=== PATIENT | female | born 1980 | race Caucasian/White ===

== ENCOUNTER 2016-12-26 14:08 | Inpatient (IN) | payer MEDICAID ==
[~2016-12-26] VITALS: Ht 167.6 cm; Wt 55.3 kg
[2016-12-26 15:06] LABS: BASOPHILS # (AUTO) 0.06 K/uL (0.00-0.20); BASOPHILS % (AUTO) 0.6 % (0.0-2.0); EOSINOPHILS % (AUTO) 0.01 % (1.0-6.0); HEMATOCRIT 42.8 % (36-46); HEMOGLOBIN 14.1 g/dL (12.0-16.0); LYMPHOCYTES # (AUTO) 1.1 K/uL (1.0-4.8); MEAN CORPUSCULAR HEMOGLOBIN 30.3 pg (26.0-34.0); MEAN CORPUSCULAR VOLUME 92 fL (80-100); MONOCYTES # (AUTO) 0.4 K/uL (0.1-1.0); NEUTROPHILS # (AUTO) 7.5 K/uL (1.8-7.7); NEUTROPHILS % (AUTO) 83.3 % (40.0-70.0); PLATELET COUNT (AUTO) 455 K/uL (150-450); RED BLOOD CELL COUNT(AUTO) 4.66 MIL/uL (4.00-5.20); RED CELL DISTRIBUTION WIDTH 14.8 % (11.5-14.5)
[2016-12-26 15:12] LABS: ANION GAP 18 mmol/L (8-16); CALCIUM, TOTAL 8.4 mg/dL (8.8-10.5); CARBON DIOXIDE 20 mmol/L (22-29); CHLORIDE 105 mmol/L (98-107); GLOMERULAR FILTR. RATE CALC > 60 mL/min (>60); POTASSIUM 3.5 mmol/L (3.5-5.1); SODIUM SERUM 143 mmol/L (136-145); UREA NITROGEN, BLOOD 25 mg/dL (7-18)
[2016-12-26 15:17] LABS: ALANINE AMINOTRANSFERASE 36 U/L (12-78); ALBUMIN 3.8 g/dL (3.4-5.0); ASPARTATE AMINOTRANSFERASE 49 U/L (15-37); BILIRUBIN,TOTAL 0.5 mg/dL (0.1-1.0)
[2016-12-26] MEDS ORDERED: LORazepam 2 MG TABLET PO ONE (18:45)
[2016-12-26] MEDS ORDERED: HALOPERIDOL 5 MG TABLET PO ONE (18:45)
[2016-12-26] MEDS ORDERED: ACETAMINOPHEN 325 MG TABLET PO PRN (20:00)
[2016-12-26] MEDS ORDERED: 0.9% SODIUM CHLORIDE 10 ML SYRINGE IVP PRN (20:00)
[2016-12-26] MEDS ORDERED: LORazepam 2 MG TABLET PO PRN (20:15)
[2016-12-26] MEDS ORDERED: ZOLPIDEM TARTRATE 10 MG TABLET PO PRN (20:15)
[2016-12-26] MEDS ORDERED: CYANOCOBALAMIN 1,000 MCG/ML VIAL IM ONE (20:15)
[2016-12-26] MEDS ORDERED: LOPERAMIDE HCL 2 MG CAPSULE PO PRN (20:15)
[2016-12-26] MEDS ORDERED: GuaiFENesin/D-METHORPHAN [SUGAR-FREE] 200-20MG/10 ML SYRUP UDCUP PO PRN (20:15)
[2016-12-26] MEDS ORDERED: HALOPERIDOL 5 MG TABLET PO PRN (20:15)
[2016-12-26] MEDS ORDERED: HydrOXYzine PAMOATE 50 MG CAPSULE PO PRN (20:15)
[2016-12-27] VITALS (7 sets, daily range): BP systolic 100–119; BP diastolic 62–67
[2016-12-27] MEDS ORDERED: LORazepam 2 MG TABLET PO PRN (07:00)
[2016-12-27] MEDS: FOLIC ACID 1 MG TABLET PO SCH (09:18)
[2016-12-27] MEDS: THIAMINE HCL 100 MG TABLET PO SCH ×3 (09:19→16:06)
[2016-12-27] MEDS: LORazepam 2 MG TABLET PO SCH ×4 (09:19→20:32)
[2016-12-27] MEDS: MULTIVITAMINS WITH MINERALS, THERAPEUTIC TABLET PO SCH (09:19)
[2016-12-27 11:24] LABS: HEPATITIS Bs ANTIGEN SCREEN P Negative (Negative); HEPATITIS C AB SCREEN <0.1 s/co ratio (0.0-0.9)
[2016-12-27] MEDS ORDERED: PNEUMOCOCCAL VACCINE POLYVALENT 0.5 ML VIAL [PPSV23] IM ONE (17:30)
[2016-12-27] MEDS: OLANZapine 5 MG TABLET PO SCH (20:32)
[2016-12-28 05:53] VITALS: BP 107/62
[2016-12-28 05:56] VITALS: BP 107/62
[2016-12-28 06:16] VITALS: BP 107/62
[2016-12-28] MEDS: MULTIVITAMINS WITH MINERALS, THERAPEUTIC TABLET PO SCH (09:00)
[2016-12-28] MEDS: OLANZapine 5 MG TABLET PO SCH ×2 (09:00→20:22)
[2016-12-28] MEDS: LORazepam 2 MG TABLET PO SCH ×4 (09:00→20:22)
[2016-12-28] MEDS: THIAMINE HCL 100 MG TABLET PO SCH ×2 (09:00→16:15)
[2016-12-28] MEDS: FOLIC ACID 1 MG TABLET PO SCH (09:00)
[2016-12-28 16:00] VITALS: BP 120/72
[2016-12-29 06:16] VITALS: BP 110/70
[2016-12-29] MEDS ORDERED: LORazepam 1 MG TABLET PO PRN (07:00)
[2016-12-29 08:17] VITALS: BP 121/66
[2016-12-29] MEDS: LORazepam 1 MG TABLET PO SCH ×5 (09:00→20:16)
[2016-12-29] MEDS: THIAMINE HCL 100 MG TABLET PO SCH ×3 (09:00→16:54)
[2016-12-29] MEDS: FOLIC ACID 1 MG TABLET PO SCH ×2 (09:00→09:06)
[2016-12-29] MEDS: MULTIVITAMINS WITH MINERALS, THERAPEUTIC TABLET PO SCH ×2 (09:00→09:06)
[2016-12-29] MEDS: OLANZapine 5 MG TABLET PO SCH ×3 (09:00→20:16)
[2016-12-29 16:00] VITALS: BP 110/77
[2016-12-30] MEDS ORDERED: LORazepam 1 MG TABLET PO PRN (07:00)
[2016-12-30 07:11] VITALS: BP 100/65
[2016-12-30 08:00] VITALS: BP 118/79
[2016-12-30 08:23] VITALS: BP 118/79
[2016-12-30 09:05] LABS: BASOPHILS % (AUTO) 0.3 % (0.0-2.0); HEMATOCRIT 44.2 % (36-46); HEMOGLOBIN 14.1 g/dL (12.0-16.0); LYMPHOCYTES % (AUTO) 15.8 % (22.0-44.0); MEAN CORPUSCULAR HEMOGLOBIN 29.6 pg (26.0-34.0); MEAN CORPUSCULAR HGB CONC 31.8 G/dL (31.0-37.0); MEAN CORPUSCULAR VOLUME 93 fL (80-100); MONOCYTES # (AUTO) 0.5 K/uL (0.1-1.0); MONOCYTES % (AUTO) 8.2 % (2.0-9.0); NEUTROPHILS # (AUTO) 4.7 K/uL (1.8-7.7); NEUTROPHILS % (AUTO) 74.7 % (40.0-70.0); PLATELET COUNT (AUTO) 367 K/uL (150-450); RED BLOOD CELL COUNT(AUTO) 4.75 MIL/uL (4.00-5.20); RED CELL DISTRIBUTION WIDTH 14.6 % (11.5-14.5); WHITE BLOOD COUNT (AUTO) 6.3 K/uL (4.5-11.0)
[2016-12-30 09:09] LABS: HEMOGLOBIN A1C 5.2 % (4.5-6.2)
[2016-12-30 09:23] LABS: ALANINE AMINOTRANSFERASE 29 U/L (12-78); ALBUMIN 2.8 g/dL (3.4-5.0); ANION GAP 9 mmol/L (8-16); ASPARTATE AMINOTRANSFERASE 21 U/L (15-37); BILIRUBIN,TOTAL 0.2 mg/dL (0.1-1.0); CALCIUM, TOTAL 8.5 mg/dL (8.8-10.5); CARBON DIOXIDE 26 mmol/L (22-29); CHLORIDE 104 mmol/L (98-107); CREATININE 0.82 mg/dL (0.60-1.30); GLOMERULAR FILTR. RATE CALC > 60 mL/min (>60); POTASSIUM 3.9 mmol/L (3.5-5.1); SODIUM SERUM 139 mmol/L (136-145); TOTAL PROTEIN, SERUM 6.4 g/dL (6.4-8.2); UREA NITROGEN, BLOOD 16 mg/dL (7-18)
[2016-12-30] MEDS: OLANZapine 5 MG TABLET PO SCH ×2 (09:57→20:32)
[2016-12-30] MEDS: THIAMINE HCL 100 MG TABLET PO SCH ×2 (09:57→16:23)
[2016-12-30] MEDS: FOLIC ACID 1 MG TABLET PO SCH (09:57)
[2016-12-30] MEDS: MULTIVITAMINS WITH MINERALS, THERAPEUTIC TABLET PO SCH (09:57)
[2016-12-30 12:09] LABS: CHOL/HDL RATIO 2.2 (3.9-5.7)
[2016-12-30 16:00] VITALS: BP 116/70
[2016-12-31 00:56] VITALS: BP 119/82
[2016-12-31 00:57] VITALS: BP 119/82
[2016-12-31 08:27] VITALS: BP 112/69
[2016-12-31] MEDS: THIAMINE HCL 100 MG TABLET PO SCH ×2 (08:50→16:03)
[2016-12-31] MEDS: MULTIVITAMINS WITH MINERALS, THERAPEUTIC TABLET PO SCH (08:50)
[2016-12-31] MEDS: FOLIC ACID 1 MG TABLET PO SCH (08:50)
[2016-12-31] MEDS: OLANZapine 5 MG TABLET PO SCH ×2 (08:51→20:03)
[2016-12-31 16:19] VITALS: BP 110/69
[2016-12-31 16:20] VITALS: BP 110/69
[2017-01-01] MEDS: MULTIVITAMINS WITH MINERALS, THERAPEUTIC TABLET PO SCH (08:58)
[2017-01-01] MEDS: FOLIC ACID 1 MG TABLET PO SCH (08:58)
[2017-01-01] MEDS: THIAMINE HCL 100 MG TABLET PO SCH ×2 (08:58→16:03)
[2017-01-01] MEDS: OLANZapine 5 MG TABLET PO SCH ×2 (08:58→20:23)
[2017-01-01 16:00] VITALS: BP 110/67
[2017-01-02] MEDS: FOLIC ACID 1 MG TABLET PO SCH (08:48)
[2017-01-02] MEDS: OLANZapine 5 MG TABLET PO SCH (08:48)
[2017-01-02] MEDS: THIAMINE HCL 100 MG TABLET PO SCH (08:48)
[2017-01-02] MEDS: MULTIVITAMINS WITH MINERALS, THERAPEUTIC TABLET PO SCH (08:48)
[2017-01-02 08:49] VITALS: BP 122/74
[2017-01-02] MEDS ORDERED: OLAN5TAB2 PO (11:44)
[2017-01-03 04:08] LABS: HEPATITIS Bs ANTIGEN SCREEN P Negative (Negative); HEPATITIS C AB SCREEN <0.1 s/co ratio (0.0-0.9)
== END 2017-01-02 13:10 | disposition home or self-care (01) | DRG 750 ==
LOC: EEVIPCON 14:11 → EMS 14:11 → B3A 12-27 12:52 → EMS 12-27 13:20
PROC: HZ2ZZZZ Detoxification Services for Substance Abuse Treatment (ICD-10-PCS; principal; 2016-12-27)
DX: F25.1 Schizoaffective disorder, depressive type (principal); R45.851 Suicidal ideations; Z78.1 Physical restraint status; Z91.14 Patient's other noncompliance with medication regimen; Z59.0 Homelessness; Y90.6 Blood alcohol level of 120-199 mg/100 ml; I25.2 Old myocardial infarction; I25.10 Atherosclerotic heart disease of native coronary artery without angina pectoris; F10.129 Alcohol abuse with intoxication, unspecified; D47.3 Essential (hemorrhagic) thrombocythemia
CPT/HCPCS: 80074; 82306; 82607; 82746; 83036; 83735; 84439; 86592; 99285; G0480; J3420